=== PATIENT | female | born 1975 | race Caucasian/White ===

== ENCOUNTER 2017-03-01 17:56 | Emergency (ER) | payer OTHER ==
[~2017-03-01] VITALS: Ht 162.6 cm; Wt 86.2 kg
[2017-03-01 17:56] VITALS: BP 138/94
[2017-03-01] MEDS ORDERED: ACET300T52 (18:09)
[2017-03-01] MEDS ORDERED: NICO1DIS (18:09)
[2017-03-01] MEDS ORDERED: GABA-279 (18:09)
[2017-03-01] MEDS ORDERED: ALBU17IN (18:09)
[2017-03-01] MEDS ORDERED: GABA-282 (18:09)
[2017-03-01] MEDS ORDERED: MELO15TA4 (18:09)
[2017-03-01] MEDS ORDERED: NORCOTAB PO (21:13)
[2017-03-01] MEDS ORDERED: ZOFR4TAB3 PO (21:13)
[2017-03-01] MEDS ORDERED: AMOX875T PO (21:13)
[2017-03-01] MEDS ORDERED: AMOXICILLIN 500 MG CAP PO ONE (21:15)
[2017-03-01] MEDS ORDERED: NORCO 5/325MG TABLET (BULK FOR ED) PO ONE (21:15)
[2017-03-01] MEDS ORDERED: ONDANSETRON 4 MG ORAL DISINTEGRATING TAB (S0181) PO ONE (21:15)
== END 2017-03-01 21:41 | disposition home or self-care (01) ==
LOC: M ED 19:00
DX: K02.9 Dental caries, unspecified (principal); J45.909 Unspecified asthma, uncomplicated; Z87.891 Personal history of nicotine dependence; Z79.899 Other long term (current) drug therapy

== ENCOUNTER → 2017-03-13 | Outpatient (CLI) | payer OTHER ==
[~2017-03-13] MED LIST: ACET300T52; ALBU17IN; AMOX875T PO; GABA-279; GABA-282; MELO15TA4; NICO1DIS; NORCOTAB PO; ZOFR4TAB3 PO
--- NOTE | 2017-03-14 03:01 | REP ---
Clinical: Radiculopathy. Technique: AP, lateral, and coned-down views of the lumbosacral spine. Findings: Moderate degenerative disc disease at the L5-S1 level includes endplate sclerosis, hypertrophic facet changes, and disc space narrowing. Mild multilevel degenerative changes throughout the visualized lumbar spine include early anterior spurring with endplate sclerosis. Alignment and lordosis maintained. No acute fracture / compression injury or subluxation. Impression: Mild to moderate multilevel degenerative changes most pronounced at the L5-S1 level. Signed by Joe Borden MD 03/14/2017 02:53 A
== END ==
LOC: M RAD 11:05
PROVIDERS: ATTEND Family Medicine Addiction Medicine
DX: M54.16 Radiculopathy, lumbar region (principal)

== ENCOUNTER → 2017-03-22 | Outpatient (CLI) | payer OTHER ==
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
== END ==
LOC: M PAIN 13:20
PROVIDERS: ATTEND Nurse Practitioner Family
DX: G89.29 Other chronic pain (principal); M54.5 Low back pain; M25.551 Pain in right hip; M46.1 Sacroiliitis, not elsewhere classified; F41.9 Anxiety disorder, unspecified; M12.88 Other specific arthropathies, not elsewhere classified, other specified site; F31.9 Bipolar disorder, unspecified; Z87.891 Personal history of nicotine dependence; Z79.899 Other long term (current) drug therapy

== ENCOUNTER 2018-02-18 11:44 | Emergency (ER) | payer OTHER | END 2018-02-18 13:45 | disposition home or self-care (01) | LOC: M ED 11:44 | DX: S60.222A Contusion of left hand, initial encounter (principal); W19.XXXA Unspecified fall, initial encounter; Y92.410 Unspecified street and highway as the place of occurrence of the external cause; J45.909 Unspecified asthma, uncomplicated; Z79.2 Long term (current) use of antibiotics; Z79.899 Other long term (current) drug therapy | CPT/HCPCS: 73130 ==

== ENCOUNTER 2018-11-12 16:24 | Emergency (ER) | payer MEDICAID, OTHER ==
[~2018-11-12] VITALS: Ht 162.6 cm; Wt 90.9 kg
[~2018-11-12 16:24] MED LIST changes: +GABA-1171; -GABA-279; -GABA-282; +GABA-843; +MELO15TA28; -MELO15TA4; +NICO14DI24; -NICO1DIS; +ZOFR4TAB14 PO; -ZOFR4TAB3 PO
[2018-11-12] MEDS ORDERED: IBUPROFEN 800 MG TAB PO ONE (16:45)
--- NOTE | 2018-11-12 17:23 | REP ---
LEFT KNEE, FOUR VIEWS: HISTORY: Pain. There is no acute fracture or dislocation. The joint spaces are normal in appearance. IMPRESSION: There is no acute fracture or dislocation. Electronically Signed by Dontae Lerner MD 11/12/2018 05:25 P
[2018-11-12 17:56] VITALS: BP 112/66
== END 2018-11-12 17:57 | disposition home or self-care (01) ==
LOC: M ED 16:24
DX: M25.562 Pain in left knee (principal); W10.8XXA Fall (on) (from) other stairs and steps, initial encounter; Y92.098 Other place in other non-institutional residence as the place of occurrence of the external cause; J45.909 Unspecified asthma, uncomplicated; F41.9 Anxiety disorder, unspecified

== ENCOUNTER → 2019-03-12 | Outpatient (REF) | payer MEDICAID ==
[~2019-03-12] MED LIST changes: +HYDR-3715 PO; -NORCOTAB PO
[2019-03-12 18:20] LABS: APPEARANCE, URINE HAZY (CLEAR); BACTERIA, URINE AUTO 2+ (NEGATIVE); BILIRUBIN, URINE AUTO NEGATIVE (NEGATIVE); BLOOD, URINE BLOOD NEGATIVE (NEGATIVE); COLOR, URINE YELLOW (YELLOW); GLUCOSE, URINE (UA) AUTO NEGATIVE (NEGATIVE); KETONE, URINE AUTO NEGATIVE (NEGATIVE); LEUKOCYTE ESTERASE, URINE AUTO 2+ (NEGATIVE); NITRITE, URINE AUTO NEGATIVE (NEGATIVE); PROTEIN, URINE AUTO NEGATIVE (NEGATIVE); RBC, URINE AUTO 3 /HPF (0-3); SPECIFIC GRAVITY URINE AUTO 1.012 (1.002-1.035); SQUAMOUS EPITHELIAL CELL UR AU 2 /HPF (0-6); UROBILINOGEN, URINE AUTO 0.2 mg/dL (0.0-2.0); WBC, URINE AUTO 131 /HPF (0-3)
[2019-03-12 21:03] LABS: CHLAMYDIA DNA AMPLIFICATION NEGATIVE (NEGATIVE); GC DNA AMPLIFICATION NEGATIVE (NEGATIVE)
== END ==
LOC: M LAB REF 17:11
PROVIDERS: ATTEND Nurse Practitioner Family
DX: N89.8 Other specified noninflammatory disorders of vagina (principal)

== ENCOUNTER 2019-08-22 13:20 | Emergency (ER) | payer MEDICAID, OTHER ==
[~2019-08-22] VITALS: Ht 162.6 cm; Wt 79.6 kg
[2019-08-22 13:20] VITALS: BP 129/88
[2019-08-22] MEDS ORDERED: MIRT1TAB17 PO (13:54)
[2019-08-22] MEDS ORDERED: GABA-845 PO (13:54)
[2019-08-22] MEDS ORDERED: VYVA40CA3 PO (13:54)
[2019-08-22] MEDS ORDERED: MIRA0.5T PO (13:54)
[2019-08-22] MEDS ORDERED: PRAZ2CAP PO (13:54)
[2019-08-22] MEDS ORDERED: NORCO, ANEXSIA 5/325MG TABLET (HYDROcodone/ACETAMINOPHEN) PO ONE (14:30)
== END 2019-08-22 14:36 | disposition home or self-care (01) ==
LOC: M ED 13:20
DX: M25.562 Pain in left knee (principal)

== ENCOUNTER → 2019-11-10 | Outpatient (REF) | payer OTHER, MEDICAID ==
[~2019-11-10] MED LIST changes: +GABA-845 PO; +MIRA0.5T PO; +MIRT1TAB17 PO; +PRAZ2CAP PO; +VYVA40CA3 PO
[2019-11-10 21:23] LABS: CHLAMYDIA DNA AMPLIFICATION NEGATIVE (NEGATIVE); GC DNA AMPLIFICATION NEGATIVE (NEGATIVE)
== END ==
LOC: M LAB REF 16:43
PROVIDERS: ATTEND Physician Assistant
DX: Z11.3 Encounter for screening for infections with a predominantly sexual mode of transmission (principal)

== ENCOUNTER 2020-07-07 22:35 | Emergency (ER) | payer OTHER, MEDICAID ==
[~2020-07-07] VITALS: Ht 160 cm; Wt 83.2 kg
[2020-07-07 23:01] LABS: HEMATOCRIT 50.4 % (36.0-47.0); HEMOGLOBIN 16.7 g/dl (12.0-15.5); MEAN CORPUSCULAR HEMOGLOBIN 30.5 pg (27.0-33.0); MEAN CORPUSCULAR HGB CONC 33.1 g/dl (32.0-36.5); PLATELET COUNT, AUTOMATED 271 10^3/uL (150-450); RED BLOOD COUNT 5.48 10^6/uL (4.00-5.40); WHITE BLOOD COUNT 6.4 10^3/uL (4.0-10.0)
[2020-07-07 23:22] LABS: HCG, SERUM QUALITATIVE NEGATIVE (NEGATIVE)
[2020-07-07 23:35] LABS: ACETAMINOPHEN LEVEL < 2.0 UG/ML (10.0-30.0); ALBUMIN 3.8 GM/DL (3.2-5.2); ALT/SGPT 17 U/L (12-78); BILIRUBIN,DIRECT < 0.1 MG/DL (0.0-0.2); BILIRUBIN,TOTAL 0.3 MG/DL (0.2-1.0); BLOOD UREA NITROGEN 4 MG/DL (7-18); CALCIUM LEVEL 8.9 MG/DL (8.5-10.1); CARBON DIOXIDE LEVEL 27 MEQ/L (21-32); CHLORIDE LEVEL 107 MEQ/L (98-107); CREATININE FOR GFR 0.79 MG/DL (0.55-1.30); ETHYL ALCOHOL (ETHANOL) 0.297 % (0.000-0.010); GLOMERULAR FILTRATION RATE > 60.0 (>58); GLUCOSE, FASTING 91 MG/DL (70-100); POTASSIUM SERUM 3.9 MEQ/L (3.5-5.1); SALICYLATE LEVEL 5.4 MG/DL (5.0-30.0); SODIUM LEVEL 142 MEQ/L (136-145); TOTAL PROTEIN 7.8 GM/DL (6.4-8.2)
[2020-07-07 23:52] LABS: AMPHETAMINES LEVEL URINE NEGATIVE (NEGATIVE); BARBITURATES URINE NEGATIVE (NEGATIVE); BENZODIAZEPINES URINE NEGATIVE (NEGATIVE); CANNABINOIDS URINE POSITIVE (NEGATIVE); COCAINE METABOLITE URINE NEGATIVE (NEGATIVE); METHADONE URINE NEGATIVE (NEGATIVE); OPIATES URINE NEGATIVE (NEGATIVE); PHENCYCLIDINE URINE NEGATIVE (NEGATIVE)
[2020-07-08] MEDS ORDERED: ALBUTEROL 90 MCG/ACT 8GM HFA INHALER INH ONE (07:00)
[2020-07-08] MEDS ORDERED: ACETAMINOPHEN TAB 650MG DOSE (2X325MG) PO ONE (07:15)
[2020-07-08 09:15] VITALS: BP 139/87
== END 2020-07-08 09:18 | disposition home or self-care (01) ==
LOC: M ED 22:35
DX: F10.120 Alcohol abuse with intoxication, uncomplicated (principal); F17.200 Nicotine dependence, unspecified, uncomplicated; F31.9 Bipolar disorder, unspecified; G89.29 Other chronic pain; Z79.51 Long term (current) use of inhaled steroids; Z79.899 Other long term (current) drug therapy
CPT/HCPCS: 36415; 80048; 80076; 80307; 84443; 84703; 85027; 99284; G0480

== ENCOUNTER → 2021-04-26 | Outpatient (CLI) | payer OTHER ==
[~2021-04-26] MED LIST changes: +GABA-282; +GABA-283 PO; -GABA-843; -GABA-845 PO
--- NOTE | 2021-04-26 09:37 | REP ---
INDICATION: ABD PAIN. COMPARISON: None. TECHNIQUE: Real-time sonographic evaluation of left lower supraumbilical abdominal wall performed for focal abdominal pain. FINDINGS: There is no evidence of anterior abdominal wall hernia. At the site of pain there are prominent arterial and venous structures present, but no evidence of mass. These vessels are somewhat larger on the left side compared to the right. No fluid collection is seen. IMPRESSION: No hernia or mass of anterior abdominal wall, particularly at the site of pain on the left. At the site of left abdominal pain there are somewhat prominent arterial and venous structures, larger than the right side, of uncertain significance. There is no associated mass or arteriovenous malformation. <Electronically signed by Donnell Cutler > 04/26/21 0918
== END ==
LOC: M RAD 08:23
PROVIDERS: ATTEND Physician Assistant
DX: R10.9 Unspecified abdominal pain (principal)

== ENCOUNTER → 2022-04-04 | Outpatient (CLI) | payer OTHER | LOC: M RAD 09:13 | PROVIDERS: ATTEND Student in an Organized Health Care Education/Training Program | DX: J45.30 Mild persistent asthma, uncomplicated (principal) ==

== ENCOUNTER → 2023-01-12 | Outpatient (CLI) | payer OTHER ==
[2023-01-12 11:14] LABS: LIPASE 39 U/L (12-53)
[2023-01-12 11:15] LABS: AMYLASE 47 U/L (30-118)
[2023-01-12 11:17] LABS: ALBUMIN 3.7 G/DL (3.2-5.2); ALKALINE PHOSPHATASE 97 U/L (46-116); ALT/SGPT 13 U/L (7.0-40); AST/SGOT 14 U/L (<34); BILIRUBIN,TOTAL 0.7 MG/DL (0.3-1.2); BLOOD UREA NITROGEN 10 MG/DL (9-23); CALCIUM LEVEL 9.1 MG/DL (8.5-10.1); CARBON DIOXIDE LEVEL 27 MMOL/L (20-31); CHLORIDE LEVEL 105 MMOL/L (98-107); CREATININE FOR GFR 0.53 MG/DL (0.55-1.30); GLOMERULAR FILTRATION RATE > 60.0 (>58); GLUCOSE, FASTING 88 MG/DL (60-100); POTASSIUM SERUM 4.7 MMOL/L (3.5-5.1); SODIUM LEVEL 137 MMOL/L (136-145)
== END ==
LOC: M LAB 09:57
PROVIDERS: ATTEND Nurse Practitioner Family
DX: R14.0 Abdominal distension (gaseous) (principal)

== ENCOUNTER 2023-01-24 18:01 | Emergency (ER) | payer OTHER ==
[~2023-01-24] VITALS: Ht 162.6 cm; Wt 96.0 kg
[2023-01-24] MEDS ORDERED: ACETAMINOPHEN TAB 650MG DOSE (2X325MG) PO ONE (18:35)
[2023-01-24] MEDS ORDERED: IBUP-1022 PO (21:17)
[2023-01-24 21:26] VITALS: BP 119/85
== END 2023-01-24 22:09 | disposition home or self-care (01) ==
LOC: M ED 18:01
DX: S40.012A Contusion of left shoulder, initial encounter (principal); S80.02XA Contusion of left knee, initial encounter; R22.42 Localized swelling, mass and lump, left lower limb; W01.0XXA Fall on same level from slipping, tripping and stumbling without subsequent striking against object, initial encounter; Y92.009 Unspecified place in unspecified non-institutional (private) residence as the place of occurrence of the external cause; M17.12 Unilateral primary osteoarthritis, left knee; M25.462 Effusion, left knee; J45.909 Unspecified asthma, uncomplicated; Z79.51 Long term (current) use of inhaled steroids; Z79.899 Other long term (current) drug therapy

== ENCOUNTER → 2023-03-19 | Outpatient (REF) | payer OTHER ==
[~2023-03-19] MED LIST changes: +IBUP-1022 PO
[2023-03-19 17:24] LABS: C REACTIVE PROTEIN QUANTITATIV 2.4 MG/DL (<1.0); CHOLESTEROL RISK RATIO 4.58 (<5); HDL CHOLESTEROL 53.7 MG/DL (>40); LDL CHOLESTEROL 172.3 MG/DL (<100); NON-HDL-C 192.3 MG/DL
[2023-03-19 17:25] LABS: RHEUMATOID FACTOR QUANT 8.9 IU/ML (<14)
== END ==
LOC: M LAB REF 16:30
PROVIDERS: ATTEND Nurse Practitioner Family
DX: M25.552 Pain in left hip (principal); Z68.36 Body mass index [BMI] 36.0-36.9, adult

== ENCOUNTER 2023-04-01 19:11 | Observation (INO) | payer MEDICAID, OTHER ==
[~2023-04-01] VITALS: Ht 162.6 cm; Wt 95.9 kg
[2023-04-01] MEDS ORDERED: MORPHINE 2 MG/ML 1ML VIAL IV ONE (21:30)
[2023-04-01 22:09] LABS: BASO % 0.5 % (0.0-1.0); EOS # 0.1 10^3/uL (0.0-0.5); EOS % 1.4 % (0.0-3.0); HEMOGLOBIN 15.7 g/dl (12.0-15.5); LYMPH # 1.8 10^3/uL (1.5-5.0); LYMPH % 20.7 % (24.0-44.0); MEAN CORPUSCULAR HEMOGLOBIN 30.5 pg (27.0-33.0); MEAN CORPUSCULAR HGB CONC 33.4 g/dl (32.0-36.5); MEAN CORPUSCULAR VOLUME 91.4 fl (80.0-96.0); MONO # 0.6 10^3/uL (0.0-0.8); MONO % 6.8 % (2.0-8.0); NEUTROPHILS # 6.1 10^3/uL (1.5-8.5); NEUTROPHILS % 70.1 % (36.0-66.0); PLATELET COUNT, AUTOMATED 245 10^3/uL (150-450); RED BLOOD COUNT 5.14 10^6/uL (4.00-5.40); WHITE BLOOD COUNT 8.7 10^3/uL (4.0-10.0)
[2023-04-01 22:34] LABS: THYROID STIMULATING HORMONE 0.986 uIU/ML (0.55-4.78)
[2023-04-01 22:39] LABS: BLOOD UREA NITROGEN 7 MG/DL (9-23); CALCIUM LEVEL 9.7 MG/DL (8.5-10.1); CARBON DIOXIDE LEVEL 24 MMOL/L (20-31); CHLORIDE LEVEL 103 MMOL/L (98-107); CREATININE FOR GFR 0.63 MG/DL (0.55-1.30); FREE T4 1.21 NG/DL (0.89-1.76); GLOMERULAR FILTRATION RATE > 60.0 (>58); GLUCOSE, FASTING 89 MG/DL (60-100); POTASSIUM SERUM 4.8 MMOL/L (3.5-5.1); SODIUM LEVEL 138 MMOL/L (136-145)
[2023-04-01] MEDS ORDERED: PERCOCET 5MG/325MG TAB PO ONE (23:05)
[2023-04-01] MEDS ORDERED: NS 500 ML IV ONE (23:10)
[2023-04-01] MEDS ORDERED: OMEP-173 PO (23:25)
[2023-04-01] MEDS ORDERED: FLUT1INH3 INH (23:25)
[2023-04-01] MEDS ORDERED: HOME MED LIST COMPLETE! XX SCH (23:30)
[2023-04-01] MEDS ORDERED: MOM 30ML SUSPENSION UDC PO PRN (23:50)
[2023-04-01] MEDS ORDERED: ACETAMINOPHEN TAB 650MG DOSE (2X325MG) PO PRN (23:50)
[2023-04-01 23:51] LABS: RSV AMPLIFICATION NEGATIVE (NEGATIVE)
[2023-04-02 01:00] VITALS: BP 136/94
[2023-04-02] MEDS: KETOROLAC 30 MG/ML 1ML VIAL IV PRN ×2 (01:45→08:01)
[2023-04-02] MEDS: MORPHINE 2 MG/ML 1ML VIAL IV PRN ×4 (04:37→19:53)
[2023-04-02 06:23] VITALS: BP 139/87
[2023-04-02 06:27] LABS: HEMATOCRIT 43.5 % (36.0-47.0); HEMOGLOBIN 14.4 g/dl (12.0-15.5); MEAN CORPUSCULAR HEMOGLOBIN 30.5 pg (27.0-33.0); MEAN CORPUSCULAR HGB CONC 33.1 g/dl (32.0-36.5); MEAN CORPUSCULAR VOLUME 92.2 fl (80.0-96.0); PLATELET COUNT, AUTOMATED 203 10^3/uL (150-450); RED BLOOD COUNT 4.72 10^6/uL (4.00-5.40); WHITE BLOOD COUNT 6.2 10^3/uL (4.0-10.0)
[2023-04-02 07:02] LABS: BLOOD UREA NITROGEN 8 MG/DL (9-23); CARBON DIOXIDE LEVEL 26 MMOL/L (20-31); CHLORIDE LEVEL 102 MMOL/L (98-107); CREATININE FOR GFR 0.59 MG/DL (0.55-1.30); GLOMERULAR FILTRATION RATE > 60.0 (>58); GLUCOSE, FASTING 90 MG/DL (60-100); POTASSIUM SERUM 3.5 MMOL/L (3.5-5.1); SODIUM LEVEL 137 MMOL/L (136-145)
[2023-04-02] MEDS: ENOXAPARIN 40MG/0.4ML SYRINGE (J1650 PER 10MG) SC SCH (08:02)
[2023-04-02] MEDS: PERCOCET 5MG/325MG TAB PO PRN ×2 (13:03→23:15)
[2023-04-02] MEDS: OMEPRAZOLE 20MG CAP PO SCH (13:03)
[2023-04-02 14:00] VITALS: BP_SYST 125; BP_SYST 129; BP_DIAS 58; BP_DIAS 72
[2023-04-02 20:00] VITALS: BP 140/89
[2023-04-02] MEDS: ADVAIR HFA 230/21MCG INHALER INH SCH (20:00)
[2023-04-03] MEDS: PERCOCET 5MG/325MG TAB PO PRN ×4 (04:25→21:28)
[2023-04-03 05:11] VITALS: BP 130/78
[2023-04-03 06:37] LABS: HEMATOCRIT 42.1 % (36.0-47.0); HEMOGLOBIN 13.8 g/dl (12.0-15.5); MEAN CORPUSCULAR HEMOGLOBIN 30.3 pg (27.0-33.0); MEAN CORPUSCULAR HGB CONC 32.8 g/dl (32.0-36.5); MEAN CORPUSCULAR VOLUME 92.5 fl (80.0-96.0); PLATELET COUNT, AUTOMATED 186 10^3/uL (150-450); RED BLOOD COUNT 4.55 10^6/uL (4.00-5.40); WHITE BLOOD COUNT 4.2 10^3/uL (4.0-10.0)
[2023-04-03 07:06] LABS: BLOOD UREA NITROGEN 10 MG/DL (9-23); CALCIUM LEVEL 8.4 MG/DL (8.5-10.1); CARBON DIOXIDE LEVEL 28 MMOL/L (20-31); CHLORIDE LEVEL 104 MMOL/L (98-107); GLOMERULAR FILTRATION RATE > 60.0 (>58); GLUCOSE, FASTING 101 MG/DL (60-100); POTASSIUM SERUM 3.9 MMOL/L (3.5-5.1); SODIUM LEVEL 139 MMOL/L (136-145)
[2023-04-03] MEDS ORDERED: MIRALAX *UNIT DOSE* 17GM PACKET PO PRN (07:55)
[2023-04-03] MEDS ORDERED: MOM 30ML SUSPENSION UDC PO PRN (07:55)
[2023-04-03] MEDS: OMEPRAZOLE 20MG CAP PO SCH (08:56)
[2023-04-03] MEDS: SENOKOT S TAB PO SCH ×2 (08:56→21:27)
[2023-04-03] MEDS: ENOXAPARIN 40MG/0.4ML SYRINGE (J1650 PER 10MG) SC SCH (08:56)
[2023-04-03] MEDS: ADVAIR HFA 230/21MCG INHALER INH SCH ×2 (09:19→19:19)
[2023-04-03] MEDS: MORPHINE 2 MG/ML 1ML VIAL IV PRN (10:00)
[2023-04-03 14:00] VITALS: BP 133/81
[2023-04-03 19:47] VITALS: BP 138/85
[2023-04-04] MEDS: PERCOCET 5MG/325MG TAB PO PRN ×4 (04:14→22:31)
[2023-04-04 06:00] VITALS: BP 139/85
[2023-04-04 06:50] LABS: BLOOD UREA NITROGEN 9 MG/DL (9-23); CALCIUM LEVEL 9.1 MG/DL (8.5-10.1); CARBON DIOXIDE LEVEL 28 MMOL/L (20-31); CHLORIDE LEVEL 103 MMOL/L (98-107); CREATININE FOR GFR 0.56 MG/DL (0.55-1.30); GLOMERULAR FILTRATION RATE > 60.0 (>58); GLUCOSE, FASTING 103 MG/DL (60-100); POTASSIUM SERUM 4.2 MMOL/L (3.5-5.1); SODIUM LEVEL 138 MMOL/L (136-145)
[2023-04-04] MEDS: ADVAIR HFA 230/21MCG INHALER INH SCH ×2 (07:07→19:43)
[2023-04-04] MEDS: OMEPRAZOLE 20MG CAP PO SCH (08:44)
[2023-04-04] MEDS: SENOKOT S TAB PO SCH (08:44)
[2023-04-04] MEDS: ENOXAPARIN 40MG/0.4ML SYRINGE (J1650 PER 10MG) SC SCH (08:45)
[2023-04-04] MEDS ORDERED: FLEET ENEMA PR PRN (09:25)
[2023-04-04] MEDS ORDERED: LACTULOSE 20GM/30ML SYRUP UDC PO SCH (12:00)
[2023-04-04 14:00] VITALS: BP 133/89
[2023-04-04] MEDS ORDERED: SENOKOT S TAB PO PRN (16:50)
[2023-04-04 20:43] VITALS: BP 131/89
[2023-04-04] MEDS ORDERED: carisoprodoL 350 MG TAB PO PRN (23:50)
[2023-04-05] MEDS ORDERED: KETOROLAC 30 MG/ML 1ML VIAL IV ONE
[2023-04-05] MEDS: PERCOCET 5MG/325MG TAB PO PRN ×2 (04:45→10:54)
[2023-04-05 05:56] VITALS: BP 130/88
[2023-04-05 06:42] LABS: BLOOD UREA NITROGEN 9 MG/DL (9-23); CALCIUM LEVEL 9.3 MG/DL (8.5-10.1); CARBON DIOXIDE LEVEL 28 MMOL/L (20-31); CHLORIDE LEVEL 102 MMOL/L (98-107); CREATININE FOR GFR 0.59 MG/DL (0.55-1.30); GLOMERULAR FILTRATION RATE > 60.0 (>58); GLUCOSE, FASTING 96 MG/DL (60-100); POTASSIUM SERUM 4.1 MMOL/L (3.5-5.1); SODIUM LEVEL 137 MMOL/L (136-145)
[2023-04-05] MEDS: ADVAIR HFA 230/21MCG INHALER INH SCH (07:09)
[2023-04-05] MEDS ORDERED: MIRA1POW3 PO (08:30)
[2023-04-05] MEDS ORDERED: MOM30SS2 PO (08:30)
[2023-04-05] MEDS ORDERED: PERCOCET PO (08:30)
[2023-04-05] MEDS ORDERED: ACET1TAB55 PO (08:30)
[2023-04-05] MEDS ORDERED: LOVE1INJ SC (08:30)
[2023-04-05] MEDS ORDERED: SENN-52 PO (08:30)
[2023-04-05] MEDS: ENOXAPARIN 40MG/0.4ML SYRINGE (J1650 PER 10MG) SC SCH (09:28)
[2023-04-05] MEDS: OMEPRAZOLE 20MG CAP PO SCH (09:28)
== END 2023-04-05 11:00 ==
LOC: M ED 19:11 → EDBD 19:11 → INTOOBSV 23:47 → M ED INP 23:47 → M MS5PR 04-02 00:51
PROVIDERS: ADMIT Family Medicine; ATTEND Internal Medicine
DX: S82.61XA Displaced fracture of lateral malleolus of right fibula, initial encounter for closed fracture (principal); S83.512D Sprain of anterior cruciate ligament of left knee, subsequent encounter; W01.0XXA Fall on same level from slipping, tripping and stumbling without subsequent striking against object, initial encounter; Y92.89 Other specified places as the place of occurrence of the external cause; Y93.01 Activity, walking, marching and hiking; K59.00 Constipation, unspecified; M17.12 Unilateral primary osteoarthritis, left knee; J45.909 Unspecified asthma, uncomplicated; K21.9 Gastro-esophageal reflux disease without esophagitis; Z79.899 Other long term (current) drug therapy; Z87.891 Personal history of nicotine dependence
CPT/HCPCS: 29515; 36415; 71046; 73590; 73610; 73630; 80048; 84439; 84443; 85025; 85027; 87631; 93005; 93041; 94640; 94760; 96372; 96374; 96375; 96376; 97116; 97161; 97165; 97530; 97535; 99285; J1650; J1885

== ENCOUNTER → 2023-05-31 | Outpatient (CLI) | payer OTHER ==
[~2023-05-31] MED LIST changes: +ACET1TAB55 PO; +FLUT1INH3 INH; +LOVE1INJ SC; +MIRA1POW3 PO; +MOM30SS2 PO; +OMEP-173 PO; +PERCOCET PO; +SENN-52 PO
== END ==
LOC: M SOG 11:27
PROVIDERS: ATTEND Orthopaedic Surgery
DX: S82.61XD Displaced fracture of lateral malleolus of right fibula, subsequent encounter for closed fracture with routine healing (principal); W18.30XD Fall on same level, unspecified, subsequent encounter

== ENCOUNTER → 2023-06-07 | Outpatient (CLI) | payer OTHER ==
[~2023-06-07] MED LIST changes: -GABA-283 PO; +GABA-284 PO
== END ==
LOC: M SOG 07:57
PROVIDERS: ATTEND Orthopaedic Surgery
DX: M25.561 Pain in right knee (principal); M25.562 Pain in left knee

== ENCOUNTER → 2023-07-12 | Outpatient (CLI) | payer OTHER | LOC: M SOG 11:02 | PROVIDERS: ATTEND Orthopaedic Surgery | DX: S82.61XD Displaced fracture of lateral malleolus of right fibula, subsequent encounter for closed fracture with routine healing (principal) ==

== ENCOUNTER → 2023-08-09 | Outpatient (REF) | payer OTHER ==
[2023-08-09 19:09] LABS: HEMOGLOBIN A1c 4.7 % (4.0-6.0)
== END ==
LOC: M LAB REF 16:36
PROVIDERS: ATTEND Nurse Practitioner Family
DX: R63.5 Abnormal weight gain (principal); E66.9 Obesity, unspecified

== ENCOUNTER → 2023-12-13 | Outpatient (REF) | payer OTHER ==
[2023-12-13 18:11] LABS: BASO % 0.7 % (0.0-1.0); EOS # 0.3 10^3/uL (0.0-0.5); EOS % 4.2 % (0.0-3.0); HEMATOCRIT 47.2 % (36.0-47.0); HEMOGLOBIN 15.4 g/dl (12.0-15.5); LYMPH # 1.6 10^3/uL (1.5-5.0); MEAN CORPUSCULAR HEMOGLOBIN 30.4 pg (27.0-33.0); MEAN CORPUSCULAR HGB CONC 32.6 g/dl (32.0-36.5); MEAN CORPUSCULAR VOLUME 93.3 fl (80.0-96.0); MONO # 0.6 10^3/uL (0.0-0.8); MONO % 9.2 % (2.0-8.0); NEUTROPHILS # 3.5 10^3/uL (1.5-8.5); NEUTROPHILS % 58.6 % (36.0-66.0); PLATELET COUNT, AUTOMATED 224 10^3/uL (150-450); RED BLOOD COUNT 5.06 10^6/uL (4.00-5.40)
[2023-12-13 18:30] LABS: LIPASE 38 U/L (12-53)
[2023-12-13 18:32] LABS: ALBUMIN 3.3 G/DL (3.2-5.2); ALKALINE PHOSPHATASE 106 U/L (46-116); ALT/SGPT 19 U/L (7.0-40); AST/SGOT 12 U/L (<34); BILIRUBIN,TOTAL 0.4 MG/DL (0.3-1.2); BLOOD UREA NITROGEN 10 MG/DL (9-23); CALCIUM LEVEL 8.8 MG/DL (8.5-10.1); CARBON DIOXIDE LEVEL 30 MMOL/L (20-31); CHLORIDE LEVEL 105 MMOL/L (98-107); CREATININE FOR GFR 0.65 MG/DL (0.55-1.30); GLOMERULAR FILTRATION RATE > 60.0 (>58); GLUCOSE, FASTING 83 MG/DL (60-100); POTASSIUM SERUM 4.8 MMOL/L (3.5-5.1); SODIUM LEVEL 140 MMOL/L (136-145); TOTAL PROTEIN 6.6 G/DL (5.7-8.2)
== END ==
LOC: M LAB REF 16:28
PROVIDERS: ATTEND Physician Assistant
DX: R10.9 Unspecified abdominal pain (principal)

== ENCOUNTER → 2023-12-26 | Outpatient (CLI) | payer OTHER ==
[~2023-12-26] MED LIST changes: +GASTROGRAFIN SOLUTION 30ML ONE; +ISOVUE-370 76% 100ML VIAL ONE; -MIRA1POW3 PO; +MIRA33506 PO
== END ==
LOC: M PLAIMG 08:01
PROVIDERS: ATTEND Physician Assistant
DX: R10.9 Unspecified abdominal pain (principal)
CPT/HCPCS: 74177; Q9963; Q9967

== ENCOUNTER → 2024-02-29 | Outpatient (REF) | payer OTHER ==
[~2024-02-29] MED LIST changes: -GASTROGRAFIN SOLUTION 30ML ONE; -ISOVUE-370 76% 100ML VIAL ONE
[2024-02-29 16:58] LABS: BASO % 0.5 % (0.0-1.0); EOS # 0.1 10^3/uL (0.0-0.5); EOS % 2.5 % (0.0-3.0); HEMATOCRIT 48.7 % (36.0-47.0); LYMPH # 1.1 10^3/uL (1.5-5.0); LYMPH % 20.2 % (24.0-44.0); MEAN CORPUSCULAR HEMOGLOBIN 29.5 pg (27.0-33.0); MEAN CORPUSCULAR HGB CONC 32.9 g/dl (32.0-36.5); MEAN CORPUSCULAR VOLUME 89.9 fl (80.0-96.0); MONO # 0.6 10^3/uL (0.0-0.8); MONO % 9.7 % (2.0-8.0); NEUTROPHILS # 3.8 10^3/uL (1.5-8.5); NEUTROPHILS % 66.7 % (36.0-66.0); PLATELET COUNT, AUTOMATED 201 10^3/uL (150-450); RED BLOOD COUNT 5.42 10^6/uL (4.00-5.40); WHITE BLOOD COUNT 5.7 10^3/uL (4.0-10.0)
[2024-02-29 17:05] LABS: ERYTHROCYTE SEDIMENTATION RATE 31 mm/hr (0-20)
[2024-02-29 17:26] LABS: RHEUMATOID FACTOR QUANT 12.4 IU/ML (<14)
[2024-02-29 17:29] LABS: HEMOGLOBIN A1c 5.3 % (4.0-6.0)
[2024-02-29 18:01] LABS: ALBUMIN 3.7 G/DL (3.2-5.2); ALKALINE PHOSPHATASE 114 U/L (46-116); ALT/SGPT 25 U/L (7.0-40); AST/SGOT 17 U/L (<34); BILIRUBIN,TOTAL 0.5 MG/DL (0.3-1.2); BLOOD UREA NITROGEN 8 MG/DL (9-23); CALCIUM LEVEL 9.7 MG/DL (8.5-10.1); CARBON DIOXIDE LEVEL 28 MMOL/L (20-31); CHLORIDE LEVEL 103 MMOL/L (98-107); CHOLESTEROL LEVEL 190 MG/DL (<200); CHOLESTEROL RISK RATIO 4.38 (<5); CREATININE FOR GFR 0.67 MG/DL (0.55-1.30); GLOMERULAR FILTRATION RATE > 60.0 (>58); GLUCOSE, FASTING 81 MG/DL (60-100); HDL CHOLESTEROL 43.3 MG/DL (>40); LDL CHOLESTEROL 114.9 MG/DL (<100); NON-HDL-C 146.7 MG/DL; POTASSIUM SERUM 4.6 MMOL/L (3.5-5.1); SODIUM LEVEL 137 MMOL/L (136-145); THYROID STIMULATING HORMONE 1.385 uIU/ML (0.55-4.78); TOTAL 25(OH) VITAMIN D 8.8 NG/ML (20.0-100.0); TRIGLYCERIDES LEVEL 159 MG/DL (<150)
[2024-02-29 18:29] LABS: HIV 1&2 SCREEN NEGATIVE (NEGATIVE)
[2024-02-29 18:37] LABS: HEPATITIS C VIRUS ABY INDEX < 0.02 INDEX (<0.8)
[2024-03-03 18:08] LABS: ANA (HEP2) Negative (.); CYCLIC CITRULLINATED PEPTIDE 4 units (0-19); SSA SJOGRENS A <0.2 AI (0.0-0.9); SSB SJOGRENS B <0.2 AI (0.0-0.9)
== END ==
LOC: M LAB REF 11:50
PROVIDERS: ATTEND Physician Assistant
DX: Z12.4 Encounter for screening for malignant neoplasm of cervix (principal); M25.551 Pain in right hip; Z11.9 Encounter for screening for infectious and parasitic diseases, unspecified; E66.9 Obesity, unspecified; E55.9 Vitamin D deficiency, unspecified

== ENCOUNTER → 2024-07-18 | Outpatient (REF) | payer OTHER ==
[2024-07-18 17:05] LABS: BLOOD UREA NITROGEN 11 MG/DL (9-23); CALCIUM LEVEL 9.7 MG/DL (8.5-10.1); CARBON DIOXIDE LEVEL 30 MMOL/L (20-31); CHLORIDE LEVEL 104 MMOL/L (98-107); CREATININE FOR GFR 0.81 MG/DL (0.55-1.30); GLOMERULAR FILTRATION RATE > 60.0 (>58); GLUCOSE, FASTING 94 MG/DL (60-100); MAGNESIUM LEVEL 1.9 MG/DL (1.8-2.4); POTASSIUM SERUM 4.7 MMOL/L (3.5-5.1); SODIUM LEVEL 134 MMOL/L (136-145)
[2024-07-18 17:08] LABS: CPK CREATINE PHOSPHOKINASE 74 U/L (34-145)
== END ==
LOC: M LAB REF 16:28
PROVIDERS: ATTEND Physician Assistant
DX: R25.2 Cramp and spasm (principal)

== ENCOUNTER → 2025-03-10 | Outpatient (REF) | payer OTHER ==
[~2025-03-10] MED LIST changes: +GABA-1172; -GABA-282
[2025-03-10 14:49] LABS: ALBUMIN 3.6 G/DL (3.2-5.2); ALKALINE PHOSPHATASE 87 U/L (35-104); ALT/SGPT 23 U/L (7.0-40); AST/SGOT 14 U/L (<34); BILIRUBIN,TOTAL 0.6 MG/DL (0.3-1.2); BLOOD UREA NITROGEN 7 MG/DL (9-23); CALCIUM LEVEL 9.5 MG/DL (8.5-10.1); CARBON DIOXIDE LEVEL 29 MMOL/L (20-31); CHLORIDE LEVEL 107 MMOL/L (98-107); CHOLESTEROL LEVEL 220 MG/DL (<200); CHOLESTEROL RISK RATIO 5.01 (<5); CREATININE FOR GFR 0.64 MG/DL (0.55-1.30); GLOMERULAR FILTRATION RATE > 90.0 (>51); GLUCOSE, FASTING 88 MG/DL (60-100); HDL CHOLESTEROL 43.9 MG/DL (>40); LDL CHOLESTEROL 150.7 MG/DL (<100); NON-HDL-C 176.1 MG/DL; POTASSIUM SERUM 4.6 MMOL/L (3.5-5.1); SODIUM LEVEL 142 MMOL/L (136-145); THYROID STIMULATING HORMONE 2.318 uIU/ML (0.55-4.78); TOTAL PROTEIN 6.6 G/DL (5.7-8.2); TRIGLYCERIDES LEVEL 127 MG/DL (<150)
[2025-03-10 14:51] LABS: TOTAL 25(OH) VITAMIN D 42.6 NG/ML (20.0-100.0)
[2025-03-10 15:12] LABS: HEMOGLOBIN A1c 5.3 % (4.0-6.0)
== END ==
LOC: M LAB REF 13:40
PROVIDERS: ATTEND Physician Assistant
DX: E55.9 Vitamin D deficiency, unspecified (principal); E78.2 Mixed hyperlipidemia; E66.9 Obesity, unspecified